=== PATIENT | female | born 1965 | race Caucasian/White ===

== ENCOUNTER 2025-03-11 06:08 | Day surgery (SDC) | payer OTHER ==
[2025-03-11] MEDS ORDERED: CEFAZOLIN SODIUM ONE (06:14)
[2025-03-11] MEDS ORDERED: Pepcid 20 MG VIAL IV ONE (06:14)
[2025-03-11] MEDS ORDERED: Reglan 10 MG/2 ML ONE (06:14)
[2025-03-11] MEDS ORDERED: celeBREX 100 MG ONE (06:15)
[2025-03-11] MEDS ORDERED: TYLENOL EXTRA STRENGTH 500 MG ONE (06:15)
[2025-03-11] MEDS ORDERED: Decadron 4 MG ONE (06:15)
[2025-03-11] MEDS ORDERED: Lactated Ringers 1,000 ML IV ONE (06:15)
[2025-03-11] MEDS ORDERED: NEURONTIN ONE (06:15)
[2025-03-11] MEDS: celeBREX 100 MG PO ONE (06:27)
[2025-03-11] MEDS: Reglan 10 MG/2 ML IV ONE (06:27)
[2025-03-11] MEDS: TYLENOL EXTRA STRENGTH 500 MG PO ONE (06:27)
[2025-03-11] MEDS: Decadron 4 MG PO ONE (06:27)
[2025-03-11] MEDS: Pepcid 20 MG VIAL IV ONE (06:27)
[2025-03-11] MEDS: NEURONTIN PO ONE (06:27)
[2025-03-11] MEDS: Lactated Ringers 1,000 ML IV SCH (06:28)
[2025-03-11 06:56] LABS: Calcium 9.3 mg/dL (8.4-10.2); Carbon Dioxide 25.0 mmol/L (22-30); Creatinine 1 0.78 mg/dL (0.52-1.04); EST GLOMERULAR FILTRATION RATE 88.5 ML/MIN; Glucose 112.0 mg/dL (74-106)
[2025-03-11 06:57] LABS: Potassium 4.0 mmol/L (3.5-5.1)
[2025-03-11] MEDS ORDERED: EXPAREL 133 MG/10 ML VIAL IJ ONE (07:39)
[2025-03-11] MEDS ORDERED: Marcaine Mpf 0.5% Vial 30 Ml ONE (07:39)
[2025-03-11] MEDS ORDERED: SUBLIMAZE 100 MCG/2 ML ONE (07:41)
[2025-03-11] MEDS ORDERED: Zofran 4 MG/2 ML VIAL ONE (07:41)
[2025-03-11] MEDS ORDERED: TORAdol 30 mg Injection ONE (07:41)
[2025-03-11] MEDS ORDERED: ROCURONIUM BROMIDE IV ONE (07:41)
[2025-03-11] MEDS ORDERED: BRIDION 200MG/2ML IV ONE (07:41)
[2025-03-11] MEDS ORDERED: Xylocaine-Mpf 2% 5 Ml Vial ONE (07:41)
[2025-03-11] MEDS ORDERED: propofoL IV ONE (07:41)
[2025-03-11] MEDS ORDERED: Versed 2 MG/2 ML Injection ONE (07:41)
[2025-03-11] MEDS ORDERED: PHENYLEPHRINE HCL ONE (09:25)
[2025-03-11] MEDS ORDERED: Ephedrine Sulfate 50 MG/ML ONE (09:35)
[2025-03-11 11:57] VITALS: RESP 18
[2025-03-11 12:04] VITALS: BP 127/60; PULSE 82; TEMP 96.8; O2SAT 97
--- NOTE | 2025-03-11 12:05 | XRAY ---
Indication: Left foot excision soft tissue mass, peroneal tendon debridement, repair Lapidus arthrodesis, silverosteotomy, and medial collateral ligament repair. Intraoperative fluoroscopy provided for 2 minute 42 seconds. 15 digital spot images submitted for interpretation ultimately demonstrates 1st tarsometatarsal arthrodesis with intact hardware. Correlate with intraoperative findings/report.
--- NOTE | 2025-03-11 14:57 | XRAY ---
2 minutes and 42 seconds of fluoroscopy was used in surgery for a left foot excision soft tissue mass, peroneal tendon debridement, repair Lapidus arthrodesis, silverosteotomy, and medial collateral ligament repair.
--- NOTE | 2025-03-13 08:04 | OP ---
SURGERY DATE/TIME: 03/11/2025 [id number] PREOPERATIVE DIAGNOSES: 1) Benign lipoma, left foot. 2) Peroneus brevis tendonitis, left foot. 3) Partial tear peroneus brevis tendon, left foot. 4) Hallux valgus, left foot. 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 POSTOPERATIVE DIAGNOSES: 1) Benign lipoma, left foot. 2) Peroneus brevis tendonitis, left foot. 3) Partial tear peroneus brevis tendon, left foot. 4) Hallux valgus, left foot. 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 PROCEDURES: 1) Excision of soft tissue tumor, left foot, less than 3 cm. 2) Repair of tendon, left foot, peroneus brevis. 3) Lapidus arthrodesis, 1st tarsometatarsal joint, left foot. 4) Silver bunionectomy, left foot. 5) Medial collateral ligament repair, left foot, 1st metatarsophalangeal joint. SURGEON: Srini Verma DPM. ASSOCIATE DIRECTOR FINANCE: None. ANESTHESIA: General plus a preoperative popliteal and saphenous blocks. See Anesthesia report for details. HEMOSTASIS: Thigh tourniquet set to 320 mmHg for a total of 60 total tourniquet minutes. ESTIMATED BLOOD LOSS: Approximately 5 mL. MATERIALS: Lapiplasty SpeedPlate, 4-prong and 2-prong, as well as a 4-0 Monocryl, 3-0 nylon, and 2-0 Vicryl and then 4-0 PDS for the peroneus brevis tendon repair. INJECTABLES: See Anesthesia report for details. INDICATIONS FOR PROCEDURE: Judy is a very pleasant 59-year-old female who presented to my service with pain approximately back in mid January. Patient reported some swelling to the lateral foot and a bunion to her left foot that on the outside of her left foot, she is fine when walking; however, when she takes her shoes off in the evening, there was a significant amount of pain that goes down to the side and the bottom of her foot. She rated the pain as an 8/10 and was dealt with from a conservative standpoint for some period of time with the use of conservative measures like shoe gear and physical therapy. Patient returned in February with new numbness to the lateral side of her foot secondary to a soft tissue mass. From that standpoint, an MRI was obtained, demonstrating some minimal tenosynovitis within the peroneus brevis tendon sheath; however, no obvious tears with a soft tissue lipoma that was initially thought to be a ganglion cyst. Patient also does have a very significant bunion with a measured angle of approximately 15 degrees on weightbearing angles between the intermetatarsal angle and hypermobility of the 1st ray. Patient wished to proceed with addressing this despite having failed conservative therapy from that standpoint. She wishes to proceed. Patient has been made aware of all risks, complications, and benefits of surgical intervention at this time including but not limited to infection, hematoma, seroma, possibility of delayed wound healing, non-wound healing, possibility of neurovascular damage, and possible need for further surgical intervention at a later date. No guarantees were provided as to the outcome of surgical intervention. Plenty of time was allowed for the patient to ask questions, which were answered to her apparent satisfaction. At this time, we decided to proceed. DESCRIPTION OF PROCEDURE AND FINDINGS: Patient was brought to the PACU prior to procedure and provided a popliteal and saphenous block. See Anesthesia report for details. Following this, patient was brought to the operating room, placed on the operating room table, and placed under general anesthesia until adequately sedated. At this time, a well-padded thigh tourniquet was applied to the patient's left thigh. The left lower extremity was prepped and draped in the typical sterile fashion and lowered onto the surgical field. At this time, attention was directed to the lateral aspect of the foot at the area of the soft tissue lipoma where a linear incision was made, very quickly encountering the encapsulated lipoma, which was then excised, utilizing careful dissection, making sure not to damage any neurovascular structures. Any neurovascular structures that were encountered were either retracted or cauterized out of the surgical field. From that standpoint, once fully encapsulated, lipoma was removed. The tendon was in direct line of sight where at the plantar aspect of the peroneal tendon, there was a minor tearing less than 25% of the tendon. This was debrided utilizing a 15-blade. The internal portion was then retubularized, utilizing a 4-0 PDS in an all-inside technique, stitching with interlocking continuous suture type. Once this was performed, the remainder of the tendon was inspected. Any of the tenosynovium that was encountered was then alleviated and relieved of any inflammatory fluid at the level of the peroneus brevis. Once this was performed, copious amounts of irrigation took place, 4-0 Monocryl was utilized to coapt the subcutaneous skin edges in a simple interrupted buried-type fashion and then 3-0 nylon was utilized in a horizontal mattress-type fashion to coapt the skin. Attention then was directed to the dorsal aspect of the 1st tarsometatarsal joint where linear incision was made over this site and the 1st tarsometatarsal joint was encountered. This was performed utilizing a 15-blade, being careful not to damage any neurovascular structures along the way of which none were encountered. From that standpoint, the extensor hallucis longus was encountered and reflected laterally for the remainder of the procedure. A 41 mm sagittal saw was then introduced into the tarsometatarsal joint, planing the joint and removing the plantar lateral lip of the 1st metatarsal. Once this was performed, utilizing the vice president business & corporate development's specifications of the Lapiplasty, the guide was placed into the joint. The cut guide was then placed over this once the adequate position was found on the C-arm, obtaining perfect circles and seeing that minimal 1st metatarsal resection was identified as well as significant portion of the approximately 4 mm of the lateral aspect of the medial cuneiform was resected. Once the resection was performed, the guide was removed and distracted, removing the portions of the 1st metatarsophalangeal joint resection. This was cleansed with copious amounts of sterile saline and then the joint was prepped utilizing 2 mm drill, and then fenestrated utilizing an osteotome and mallet. Once this was performed, the distraction compression device was then compressed and the joint was assessed position miranda. Once position was assessed to be adequate, the intermetatarsal angle was near parallel on observation. We went ahead and secured utilizing the 4-prong SpeedPlate as well as the 2-prong SpeedPlate in a 90-90 orientation. From that standpoint, once this was achieved, there was still some residual metatarsal arthritis at the medial aspect of the metatarsal head. The decision was made to proceed with a medial collateral ligament repair as well as a silver osteotomy. Linear incision was made midline over the 1st metatarsal, being careful not to damage any neurovascular structures. The nerve was encountered, however, was retracted dorsally. From that standpoint, the silver osteotomy was performed utilizing an 18 mm sagittal saw. The site was then flushed with copious amounts of sterile saline and then utilizing a linear incision in the transverse plane, the medial collateral ligament was then imbricated, utilizing 2-0 Vicryl to get some extra transverse plane correction out of the 1st MPJ. Once this was performed, the joint range of motion was assessed and deemed to be smooth and free of any crepitation as well as with a significant improvement in the range of motion overall. From that standpoint, 4-0 Monocryl was then utilized to coapt the subcutaneous skin edges in a simple interrupted buried-type fashion and then 3-0 nylon was utilized to coapt the skin in an everted-type fashion. A dressing consisting of Betadine, Adaptic, 4 x 4, Kerlix, ABD, and Kael was applied to the patient's left lower extremity. Patient was then provided a CAM boot and returned to the PACU with vital signs stable and vascular status intact. The patient handled the anesthesia as well as the procedure without significant complication. Postoperative orders as indicated in the patient's discharge chart.
== END 2025-03-11 12:20 | disposition home or self-care (01) ==
LOC: SDC 06:08
PROVIDERS: ATTEND Podiatrist Foot & Ankle Surgery
DX: D17.24 Benign lipomatous neoplasm of skin and subcutaneous tissue of left leg (principal); M76.72 Peroneal tendinitis, left leg; M20.12 Hallux valgus (acquired), left foot; M25.375 Other instability, left foot; S96.912A Strain of unspecified muscle and tendon at ankle and foot level, left foot, initial encounter